=== PATIENT | female | born 2000 | race African-American/Black ===

== ENCOUNTER 2018-04-29 17:10 | Emergency (ER) | payer SELFPAY ==
[~2018-04-29] VITALS: Ht 177.8 cm; Wt 67.0 kg
[2018-04-29 19:32] VITALS: BP 122/74
== END 2018-04-29 19:36 | disposition home or self-care (01) ==
LOC: ER 17:10
DX: G40.909 Epilepsy, unspecified, not intractable, without status epilepticus (principal); S00.512A Abrasion of oral cavity, initial encounter; X58.XXXA Exposure to other specified factors, initial encounter; Y93.89 Activity, other specified; Y92.810 Car as the place of occurrence of the external cause
CPT/HCPCS: 99283